=== PATIENT | female | born 1955 | race Caucasian/White ===

== ENCOUNTER 2017-09-28 15:56 | Observation (INO) ==
--- NOTE | 2017-09-28 16:15 | Emergency Department Note ---
START Narrative - START START: I examined this patient and my medical decision-making was reviewed with the VENEER GRADER/PA/Advanced Practice Nurse/Resident Physician. I agree with the documented findings, disposition and treatment plan as described except to the extent set forth below. I did see the patient immediately upon arrival and also spoke with the paramedics. The patient was sent from the urgent care and I did review the pre -arrival EKG as well as EKG from the paramedics. The patient does have chest pain which is sharp and constant started at 11:00 today without radiation. Does have associated diaphoresis and dyspnea and it is worse with exertion. The patient does have a history of aortic aneurysm and this study will be repeated - a CTA of the chest and abd will b done. Additionally the patient will receive nitroglycerin drip , fentanyl and Zofran, as well as other labs and chest x-ray will be done emergently. Results are pending. This point the patient is stable and she is allergic to beta blockers so will not be giving esmolol. Initial systolic blood pressure here 231 1614 I did review the patient's EKG showing a atrial paced rhythm without acute ischemic changes with a rate of 61. CO interval 200. 1652
[2017-09-28] MEDS ORDERED: *HR* FentaNYL (PF) 100 MCG/2 ML VIAL IVP ONE (16:16)
--- NOTE | 2017-09-28 16:27 | Emergency Department Note ---
Disposition Clinical Impression: Unstable angina pectoris, Hypertensive urgency Disposition: Admitted As Inpatient Condition: Fair Chest Pain HPI - General Chief Complaint: ED Chest Pain Stated Complaint: chest pain Time Seen by Provider: 09/28/17 16:00 Source: patient, EMS Limitations: no limitations Vital Signs Reviewed: Yes (BP 231/88) Nursing Notes Reviewed: Yes - History of Present Illness HPI Narrative: 61-year-old female with past medical history of hypertension, ventricular aneurysm, CAD, previous history of MIs, and atrial pacemaker, presents to the ED with acute onset of sharp left-sided chest pain that began around 11 AM this morning about 10-15 minutes after vomiting. She reports that the patient has been constant since that time, and that her pain is very similar to her previous AL. Associated symptoms include lightheadedness, dyspnea, diaphoresis , nausea, and vomiting. She states that her symptoms get worse with exertion. She denies any radiation of pain. She states that her blood pressure was high and her pulse was fast when the symptoms began. She reports that she has had nausea and vomiting for the past 3-4 days. Denies fever, chills, syncope, cough , change in bowels, dysuria, or leg swelling. Severity scale (1-10): 6 - Related Data Home Medications Medication Instructions Recorded Confirmed ALPRAZolam [Xanax 1 MG Tablet] 1 mg PO QID PRN 05/14/16 09/28/17 Gabapentin [Neurontin] 600 mg PO TID 05/14/16 09/28/17 Ibuprofen [Motrin] 800 mg PO Q8HR PRN 05/14/16 09/28/17 Lisinopril [Zestril] 40 mg PO DAILY 05/14/16 09/28/17 Ranitidine HCl [Zantac] 300 mg PO DAILY 05/14/16 09/28/17 amLODIPine [Norvasc] 10 mg PO DAILY 05/14/16 09/28/17 Oxycodone HCl 15 mg PO TID 05/21/16 09/28/17 Atorvastatin Calcium [Lipitor] 80 mg PO HS 09/28/17 09/28/17 Escitalopram [Lexapro] 10 mg PO DAILY 09/28/17 09/28/17 Furosemide [Lasix] 20 mg PO DAILY 09/28/17 09/28/17 Hydralazine HCl 100 mg PO TID 09/28/17 09/28/17 Metoprolol XL (24 HR) Succ [Toprol 25 mg PO DAILY 09/28/17 09/28/17 XL] Ondansetron HCl [Zofran] 4 mg PO TID PRN 09/28/17 09/28/17 Allergies Allergy/AdvReac Type Severity Reaction Status Date / Time hydrochlorothiazide AdvReac Rash Verified 09/28/17 14:45 metoprolol [From Toprol XL] AdvReac Rash Verified 09/28/17 14:45 All systems ED: reviewed and negative except as stated. Review of Systems: As Per HPI Chest Pain PMH - Past Medical History Medical history: Reports: aortic aneurysm, arthritis, cardiomyopathy, CHF, coronary artery disease, GERD, hyperlipidemia, hypertension, osteoporosis, peripheral artery disease Surgical history: Reports: hysterectomy, pacemaker/AICD, other Psychiatric history: Reports: anxiety ANTIQUE CLOCK REPAIRER history: Reports: no ANTIQUE CLOCK REPAIRER history - Social History Smoking Status: Former smoker Alcohol use: Reports: none Drug use: Reports: none Physical Exam - General Limitations: no limitations General appearance: alert, in no apparent distress - Head Head exam: atraumatic, normocephalic - Eye Eye exam: Present: normal appearance, EOMI - ENT ENT exam: mucous membranes moist - Chest Chest inspection: Present: normal inspection, symmetric chest wall rise, rash ( psoraisis) - Respiratory Respiratory exam: Present: normal lung sounds bilaterally. Absent: respiratory distress, accessory muscle use - Cardiovascular Cardiovascular exam: Present: regular rate, normal rhythm, +S1, +S2 - Abdominal Exam Abdominal exam: Present: soft, Non-Tender, normal bowel sounds - Extremities Exam Extremities exam: Present: normal inspection, normal capillary refill. Absent: pedal edema - Expanded Upper Extremity Exam Vascular exam: Normal: capillary refill, radial pulse - Expanded Lower Extremity Exam Neurovascular/Tendon exam: Present: normal capillary refill. Absent: pulse deficit, sensory deficit, extremity cold to touch - Neurological Exam Neurological exam: Present: alert, oriented X3 - Skin Skin exam: Present: warm, dry, intact Course Vital Signs Temperature 98.7 F 09/28/17 16:03 Pulse Rate 62 09/28/17 16:03 Respiratory Rate 16 09/28/17 16:03 Blood Pressure 231/88 09/28/17 16:03 O2 Sat by Pulse Oximetry 96 09/28/17 16:03 Temperature 97.4 F L 09/28/17 21:48 Pulse Rate 59 09/28/17 21:48 Respiratory Rate 16 09/28/17 21:48 Blood Pressure 131/60 09/28/17 21:48 O2 Sat by Pulse Oximetry 96 09/28/17 21:48 Oxygen Delivery Oxygen Delivery Room Air Chest Pain - MDM Narrative Medical decision making narrative: nitial evaluation upon arrival with EMS. ECG from EMS reviewed showing ST depression in V4-6. We will check basic labs and troponin. With her history of ventricular aneurysm will also order a CTA of the chest and abdomen to evaluate for aortic dissection. Blood pressure upon arrival is 231/88 and she has suspicion of end organ damage with ST depression. We will plan to decrease blood pressure slowly. We will give nitroglycerin and fentany. CTA shows no evidence of aortic aneurysm or dissection. Fentanyl helped the patient's pain, however she became nauseous, but Zofran helped her symptoms. Her blood pressure upon reevaluation 169/82. Initial troponin is negative. CBC and chemistry panel unremarkable. The patient's HEART score is 7. The patient will be admitted to trend troponins and further monitoring. Repeat ECG shows improvement in the ST depression in V4-6. - Differential Diagnosis Likely: stable angina, unstable angina pectoris, st elevation myocardial infraction - Lab Data Result diagrams: 09/28/17 16:19 09/28/17 16:19 Lab Results 09/28/17 09/28/17 09/28/17 Range/Units 16:19 16:19 16:19 WBC 8.5 (4.3-11.1) K/mcL RBC 4.76 (3.82-4.97) M/mcL Hgb 14.4 (11.5-15.4) g/dL Hct 42.5 (35.3-44.9) % MCV 89.3 (83.0-100.0) fL MCH 30.3 (28.0-33.3) pg MCHC 33.9 (31.6-35.5) g/dL RDW 12.1 (11.5-14.5) % Plt Count 254 (140-400) K/mcL MPV 9.1 L (9.4-12.4) fL Immature Gran % 0.6 (0-4) % Seg Neutrophils % 66.1 % Lymphocytes % 24.9 % Monocytes % 6.7 % Eosinophils % 1.2 % Basophils % 0.5 % Neutrophils # 5.6 (1.6-8.9) K/mcL Lymphocytes # 2.1 (0.6-4.6) K/mcL Monocytes # 0.6 (0.0-1.3) K/mcL Eosinophils # 0.1 (0.0-0.6) K/mcL Basophils # 0.0 (0.0-0.2) K/mcL Nucleated RBCs/100 WBC 0.2 H (0) /100 WBC Sodium 135 L (136-145) mEq/L Potassium 3.8 (3.5-5.1) mEq/L Chloride 102 (98-107) mEq/L Carbon Dioxide 25 (23-29) mEq/L BUN 15 (8-23) mg/dL Creatinine 0.74 (0.60-1.20) mg/dL Est GFR ( Amer) > 60 (> 60) Est GFR (Non-Af Amer) > 60 (> 60) BUN/Creatinine Ratio 20 (6-26) Glucose 132 H (70-105) mg/dL Calculated Osmolality 283 (280-300) Calcium 9.3 (8.6-10.3) mg/dL Troponin I < 0.03 (< 0.04) ng/mL Heart Score - Score History: Highly Suspicious EKG: Significant ST-Depression Age: 45-65 Risk Factors: Equal/Greater than 3 risk factor or history of atherosclerotic disease Troponin: Less than normal limit HEART Score Total: 7
[2017-09-28 16:36] LABS: Basophils % 0.5 %; Eosinophils # 0.1 K/mcL (0.0-0.6); Eosinophils % 1.2 %; Hematocrit 42.5 % (35.3-44.9); Hemoglobin 14.4 g/dL (11.5-15.4); Immature Granulocytes % 0.6 % (0-4); Lymphocytes # 2.1 K/mcL (0.6-4.6); Lymphocytes % 24.9 %; Mean Corpuscular HGB Conc 33.9 g/dL (31.6-35.5); Mean Corpuscular Hemoglobin 30.3 pg (28.0-33.3); Mean Corpuscular Volume 89.3 fL (83.0-100.0); Mean Platelet Volume 9.1 fL (9.4-12.4); Monocytes # 0.6 K/mcL (0.0-1.3); Monocytes % 6.7 %; Neutrophils # 5.6 K/mcL (1.6-8.9); Nucleated Red Blood Cells 0.2 /100 WBC (0); Platelet Count 254 K/mcL (140-400); Red Blood Count 4.76 M/mcL (3.82-4.97); Red Cell Distribution Width 12.1 % (11.5-14.5); Segmented Neutrophils % 66.1 %
[2017-09-28 16:45] LABS: Calcium 9.3 mg/dL (8.6-10.3); Carbon Dioxide 25 mEq/L (23-29); Chloride 102 mEq/L (98-107); Potassium 3.8 mEq/L (3.5-5.1); Sodium 135 mEq/L (136-145)
[2017-09-28 16:51] LABS: BUN/Creatinine Ratio 20 (6-26); Blood Urea Nitrogen 15 mg/dL (8-23); Glucose 132 mg/dL (70-105); Osmolality,Calculated 283 (280-300); eGFR For African Americans > 60 (> 60); eGFR For Non-African Americans > 60 (> 60)
[2017-09-28] MEDS: Nitroglycerin 25 MG/250 ML INFUS..BTL IVC SCH (17:24)
[2017-09-28] MEDS ORDERED: Ondansetron 4 MG/2 ML VIAL IVP ONE (17:36)
[2017-09-28] MEDS ORDERED: Ondansetron 4 MG/2 ML VIAL ONE (17:38)
[2017-09-29] MEDS ORDERED: Ibuprofen 800 MG TABLET PO PRN (00:37)
--- NOTE | 2017-09-29 00:37 | Internal Med History&Physical ---
<Magaly Rush - Last Filed: 09/29/17 06:55> Date of Encounter: 09/29/17 Time of Encounter: 23:50 Assessment and Plan (1) Chest pain, rule out acute myocardial infarction Current visit: Yes Status: Acute History of CAD and previous [place]. Initial EKG shows ST depressions in V4-V6. Initial troponin negative. Will trend with serial troponins and continue cardiac monitoring. Echo in AM. (2) Hypertensive urgency Current visit: Yes Status: Acute Presenting BP 231/88. Nitroglycerin gtt was started in ED to help decrease her BP, repeat of her blood pressure in ED was 131/60. Titrate nitro down, then continue home meds. Pt not on BB due to reported adverse reaction of rash. (3) Nausea & vomiting Current visit: Yes Status: Acute Reports 7 day h/o of nausea, vomiting multiple times daily, and inability to tolerate PO foods. Qualifiers: Vomiting type: cyclical vomiting Vomiting Intractability: unspecified Qualified Code(s): G43.A0 - Cyclical vomiting, not intractable (4) CAD (coronary artery disease) Current visit: Yes Status: Acute LHC performed May 2016 showed mild CAD, no stent or balloon placed, EF estimated to be 50%, and cardiology recommendations were to optimize medical treatment and reduce risk factors. Continue lipitor. Qualifiers: Coronary Disease-Associated Artery/Lesion type: [place] artery [place] vs. transplanted heart: [place] heart Associated angina: angina presence unspecified Qualified Code(s): I25.10 - Atherosclerotic heart disease of [place] coronary artery without angina pectoris (5) Presence of permanent cardiac pacemaker Current visit: Yes Status: Chronic First pacemaker placed in 2006, required replacement of generator in May 2016. Generator replaced at [place] by Dr. Shun Jacinto. Per record review, pt has pacemaker because of sick sinus syndrome. (6) Nonischemic cardiomyopathy Current visit: Yes Status: Chronic Continue DIONTE inhibitor. Pt not on BB due to reported adverse reaction of rash. Last echo shows EF 40-45%. (7) CHF with cardiomyopathy Current visit: Yes Status: Chronic Patient doesn't appear volume-overloaded at time of my exam, there were no crackles, S3 not heard on auscultation, and no peripheral edema. Pt's last echo performed May 2016, showed diastolic dysfunction and LVEF of 40-45%. Will order repeat echo in morning and continue Lasix. On telemetry for continuous cardiac monitoring. (8) DVT prophylaxis Current visit: Yes Status: Acute 5,000 units SubQ Heparin Q12H Internal Medicine - H&P: HPI Chief complaint: chest pain History of present illness: Ms. Monge is a 62 year old female who presents to ED with c/o chest pain, described as being sharp then became a dull pressure. Pt also presented for concern of elevated blood pressure, states her BP was 276/177 this morning with pulse of 129. Pt states that she woke up this morning and took her BP meds, but is unable to tell me which meds, and an hour later she became dizzy, lightheaded , short of breath, diaphoretic, and had facial flushing. At onset of chest pain and associated symptoms she was sitting down watching TV, denies having done any strenuous activities before sitting down. Chest pain was intermittent and lasted for an hour, when it hadn't gone away after an hour she became concerned and decided to get medical attention. Pt mentions that she has been nauseous and had non-bloody vomiting 3 to 4 times per day for the last week with alternating fevers and chills and cramping abdominal pain. She visited her PCP who provided zofran, but it didn't help. Pt states she has been unable to keep any food down and that it doesn't matter what type of food she eats, however she says these GI symptoms have gotten better compared to when they started. In the ED, pt's blood pressure was 231/88 with a pulse of 62. EKG from EMS crew showed ST depressions in V4-V6. Basic labs and troponin were drawn. There was concern for end organ damage given her presenting BP and ST depressions. Her BP was lowered slowly using nitroglycerin drip. CTA of chest and abdomen performed because pt reportedly has h/o aneurysm, results showed no evidence for aortic dissection. Initial metabolic panel and CBC were unremarkable, 1st troponin was negative. She was admitted to hospitalist service for further monitoring and to trend troponins. Past Med Surg Social Fam HX - Past Medical History Medical history: aortic aneurysm, arthritis, cardiomyopathy, CHF, coronary artery disease, GERD, hyperlipidemia, hypertension, osteoporosis, peripheral artery disease Psychiatric history: anxiety - Past Surgical History Surgical History: hysterectomy, pacemaker/AICD, other - Social History Smoking Status: Former smoker Smokeless Tobacco Status: No Alcohol use: none Drug use: none - Family History Mother Hx Family Cardiac Disorders: Yes Internal Medicine - H&P: Meds ALPRAZolam [Xanax 1 MG Tablet] 1 mg PO QID PRN 05/14/16 [History] Gabapentin [Neurontin] 600 mg PO TID 05/14/16 [History] Ibuprofen [Motrin] 800 mg PO Q8HR PRN 05/14/16 [History] Lisinopril [Zestril] 40 mg PO DAILY 05/14/16 [History] Ranitidine HCl [Zantac] 300 mg PO DAILY 05/14/16 [History] amLODIPine [Norvasc] 10 mg PO DAILY 05/14/16 [History] Oxycodone HCl 15 mg PO TID 05/21/16 [History] Atorvastatin Calcium [Lipitor] 80 mg PO HS 09/28/17 [History] Escitalopram [Lexapro] 10 mg PO DAILY 09/28/17 [History] Furosemide [Lasix] 20 mg PO DAILY 09/28/17 [History] Hydralazine HCl 100 mg PO TID 09/28/17 [History] Ondansetron HCl [Zofran] 4 mg PO TID PRN 09/28/17 [History] 3 Allergy/AdvReac Type Severity Reaction Status Date / Time hydrochlorothiazide AdvReac Rash Verified 09/28/17 14:45 metoprolol [From Toprol XL] AdvReac Rash Verified 09/28/17 14:45 All Systems PM: A 10-system review of systems was performed and is negative for pertinent findings except as documented above in the HPI. - Constitutional Vitals: Temp Pulse Resp BP Pulse Ox 97.4 F L 59 16 131/60 96 09/28/17 21:48 09/28/17 21:48 09/28/17 21:48 09/28/17 21:48 09/28/17 21:48 General appearance: Present: A&O X 3, pleasant, no acute distress, answers questions appropriately - Head Head exam: Present: atraumatic, normocephalic - Eye Eye exam: Present: EOMI, normal appearance - Neck Neck exam general surgery: Present: supple, trachea midline - Respiratory Respiratory exam: Present: CTAB. Absent: rales, respiratory distress, wheezes - Cardiovascular Cardiovascular exam: Present: +S1, +S2 Additional comments: Regular rate, paced rhythm - GI/Abdominal GI/Abdominal exam: Present: normal bowel sounds, soft. Absent: tenderness - Extremities Exam Extremities exam: Present: warm. Absent: pedal edema Additional comments: 2+ DP pulses - Neurological Exam Neurological exam: Present: alert, oriented X3, no focal deficits - Skin Skin exam: Present: normal color. Absent: diaphoretic Internal Med - H&P Results - Labs CBC & Chem 7: 09/29/17 00:59 09/29/17 00:59 <Hieu Canales - Last Filed: 09/29/17 07:12> Date of Encounter: 09/29/17 Internal Medicine - H&P: HPI History of present illness: Ms. Monge is a 62 year old female All Systems PM: A 10-system review of systems was performed and is negative for pertinent findings except as documented above in the HPI. - Constitutional Vitals: Temp Pulse Resp BP Pulse Ox 97.6 F 59 17 129/57 97 09/29/17 04:43 09/29/17 04:43 09/29/17 04:43 09/29/17 04:43 09/29/17 04:43 Internal Med - H&P Results - Labs CBC & Chem 7: 09/29/17 00:59 09/29/17 00:59 Labs: Short CBC 09/29/17 Range/Units 00:59 WBC 11.2 H (4.3-11.1) K/mcL Hgb 13.6 (11.5-15.4) g/dL Hct 39.9 (35.3-44.9) % Plt Count 277 (140-400) K/mcL Neutrophils # 7.0 (1.6-8.9) K/mcL BMP 09/29/17 00:59 Sodium 137 Potassium 4.1 Chloride 104 Carbon Dioxide 25 BUN 20 Creatinine 0.85 Glucose 120 H Calcium 9.2 Cardiac Enzymes 09/29/17 09/29/17 Range/Units 00:59 06:19 Troponin I < 0.03 < 0.03 (< 0.04) ng/mL - Attending Attestation I have seen and examined pt independently. I have discussed with resident physician Dr Rush regarding the management plan. Agree with the documentation.
[2017-09-29] MEDS ORDERED: Naloxone 0.4 MG/ML INJ IVP PRN (00:43)
[2017-09-29 01:06] LABS: Basophils # 0.1 K/mcL (0.0-0.2); Basophils % 0.4 %; Eosinophils # 0.2 K/mcL (0.0-0.6); Eosinophils % 1.5 %; Hematocrit 39.9 % (35.3-44.9); Hemoglobin 13.6 g/dL (11.5-15.4); Immature Granulocytes % 0.4 % (0-4); Lymphocytes % 26.5 %; Mean Corpuscular HGB Conc 34.1 g/dL (31.6-35.5); Mean Corpuscular Hemoglobin 30.8 pg (28.0-33.3); Mean Corpuscular Volume 90.3 fL (83.0-100.0); Mean Platelet Volume 9.2 fL (9.4-12.4); Monocytes % 8.7 %; Platelet Count 277 K/mcL (140-400); Red Blood Count 4.42 M/mcL (3.82-4.97); Red Cell Distribution Width 12.3 % (11.5-14.5); Segmented Neutrophils % 62.5 %
[2017-09-29 01:22] LABS: BUN/Creatinine Ratio 24 (6-26); Blood Urea Nitrogen 20 mg/dL (8-23); Calcium 9.2 mg/dL (8.6-10.3); Carbon Dioxide 25 mEq/L (23-29); Chloride 104 mEq/L (98-107); Glucose 120 mg/dL (70-105); Osmolality,Calculated 288 (280-300); Potassium 4.1 mEq/L (3.5-5.1); Sodium 137 mEq/L (136-145); eGFR For African Americans > 60 (> 60); eGFR For Non-African Americans > 60 (> 60)
[2017-09-29] MEDS ORDERED: Ondansetron 4 MG/2 ML VIAL ONE (01:50)
[2017-09-29] MEDS: ALPRAZolam 1 MG TABLET PO PRN ×2 (01:51→22:40)
[2017-09-29] MEDS: Ondansetron 4 MG/2 ML VIAL IVP PRN (01:55)
[2017-09-29] MEDS: *HR* Heparin 5,000 UNIT/ML VIAL SQ SCH ×2 (06:27→19:29)
[2017-09-29] MEDS: Furosemide 20 MG TABLET PO SCH (08:31)
[2017-09-29] MEDS: *HR* OxyCODONE Immed Rel 15 MG TABLET PO SCH ×3 (08:31→22:36)
[2017-09-29] MEDS: hydrALAZINE 25 MG TABLET PO SCH ×3 (08:31→22:35)
[2017-09-29] MEDS: amLODIPine 5 MG TABLET PO SCH (08:32)
[2017-09-29] MEDS: Gabapentin 300 MG CAPSULE PO SCH ×3 (08:32→22:35)
[2017-09-29] MEDS: Lisinopril 20 MG TABLET PO SCH (08:32)
[2017-09-29] MEDS: Famotidine 20 MG TABLET PO SCH (08:32)
[2017-09-29] MEDS ORDERED: Metoprolol XL (24 HR) Succ 25 MG TAB.ER.24H PO SCH (09:00)
[2017-09-29] MEDS ORDERED: 0.9 % Sodium Chloride 1,000 ML ONE (11:16)
[2017-09-29] MEDS: Nitroglycerin 25 MG/250 ML INFUS..BTL IVC SCH (15:23)
--- NOTE | 2017-09-29 15:33 | Internal Med Progress Note ---
Date of Encounter: 09/29/17 Time of Encounter: 15:31 - Assessment and plan (1) Chest pain, rule out acute myocardial infarction Current Visit: Yes Status: Acute Assessment and plan: Has history of CAD and previous [place] Described as squeezing in substernal region, lasted 30 min, no alleviating factor, without radiation Troponin negative x3 BP now within normal limits Last [facility] was in 2016. Previous echocardiogram showed reduced LVEF. Today echo showed LVEF 65% with normal LV size and function, moderate diastolic dysfunction. EKG showed ST depressions in V4-V6 - Continue management of hypertension - Consult Cardiology service, recommendations appreciated if further workup is necessary (2) Hypertensive urgency Current Visit: Yes Status: Acute Assessment and plan: Off nitro drip since BP now within normal limits - Continue Norvasc, Hydralazine TID PO, Lisinopril - She has listed allergie to BB - will add prn hydralazine IV (3) CAD (coronary artery disease) Current Visit: Yes Status: Acute Qualifiers: Coronary Disease-Associated Artery/Lesion type: [place] artery [place] vs. transplanted heart: [place] heart Associated angina: angina presence unspecified Qualified Code(s): I25.10 - Atherosclerotic heart disease of [place] coronary artery without angina pectoris (4) CHF (congestive heart failure) Current Visit: Yes Status: Acute Qualifiers: Heart failure type: diastolic Heart failure chronicity: chronic Qualified Code(s): I50.32 - Chronic diastolic (congestive) heart failure (5) Cardiomyopathy Current Visit: Yes Status: Acute Qualifiers: Cardiomyopathy type: unspecified Qualified Code(s): I42.9 - Cardiomyopathy , unspecified (6) DVT prophylaxis Current Visit: Yes Status: Acute (7) Nausea & vomiting Current Visit: Yes Status: Acute Qualifiers: Vomiting type: cyclical vomiting Vomiting Intractability: unspecified Qualified Code(s): G43.A0 - Cyclical vomiting, not intractable (8) Nonischemic cardiomyopathy Current Visit: Yes Status: Chronic (9) Presence of permanent cardiac pacemaker Current Visit: Yes Status: Chronic - Subjective Interval history: Patient here for chest pain and hypertensive urgency. She was placed on nitroglycerin drip since admission and BP improved but did get SBP 70s at some point early today. She required 250 ml IV fluid and manual BP reading now SBP in 110. She is currently chest pain free, last episode was 4 am today. She denies SOB, palpiations, n/v, diaphoresis, numbness/tingling. - Constitutional Vitals: Temp Pulse Resp BP Pulse Ox 98.2 F 60 16 106/64 96 09/29/17 12:21 09/29/17 12:21 09/29/17 12:21 09/29/17 12:21 09/29/17 12:21 General appearance: Present: A&O X 3, pleasant, no acute distress, answers questions appropriately - Head Head exam: Present: atraumatic, normocephalic - Eye Eye exam: Present: PERRL, conjuntiva pink, sclera anicteric Pupils: Present: PERRL - Neck Neck exam general surgery: Present: supple, trachea midline. Absent: lymphadenopathy - Respiratory Respiratory exam: Present: decreased breath sounds, CTAB. Absent: accessory muscle use, rales, rhonchi, wheezes - Cardiovascular Cardiovascular exam: Present: RRR, +S1, +S2. Absent: diastolic murmur, gallop, rubs, systolic murmur - GI/Abdominal GI/Abdominal exam: Present: normal bowel sounds, soft, no peritoneal signs. Absent: distended, tenderness - Extremities Exam Extremities exam: Present: warm, radial pulses palpable and symmetrical. Absent : calf tenderness, cyanotic, pedal edema - Neurological Exam Neurological exam: Present: CN II-XII intact, oriented X3, no focal deficits. Absent: pronater drift, facial droop, speech deficit - Skin Skin exam: Present: dry, intact Internal Medicine: Result - Labs CBC & Chem 7: 09/29/17 00:59 09/29/17 00:59 Labs: Short CBC 09/29/17 Range/Units 00:59 WBC 11.2 H (4.3-11.1) K/mcL Hgb 13.6 (11.5-15.4) g/dL Hct 39.9 (35.3-44.9) % Plt Count 277 (140-400) K/mcL Neutrophils # 7.0 (1.6-8.9) K/mcL BMP 09/29/17 00:59 Sodium 137 Potassium 4.1 Chloride 104 Carbon Dioxide 25 BUN 20 Creatinine 0.85 Glucose 120 H Calcium 9.2 Cardiac Enzymes 02/28/18 02/28/18 02/28/18 Range/Units 00:59 06:19 12:48 Troponin I < 0.03 < 0.03 < 0.03 (< 0.04) ng/mL - Impressions Impressions Echocardiogram 09/29/17 01:51 Impressions: LVEF 65%. Normal LV chamber size and function. Mild concentric left ventricular hypertrophy. Moderate left ventricular diastolic dysfunction. Normal right ventricular structure and function. Aortic valve not well visualized. Mild aortic regurgitation. Mild aortic stenosis. Mean gradient 16 mmHg. No evidence of pulmonary hypertension. LVEF improved compared to report from 05/2016. Left Ventricular Wall Motion: Rest Echo Findings All wall segments showed normal motion. Findings: Study Quality * Technically adequate exam. ECG Findings * Normal sinus rhythm. Left Ventricle * LVEF 65%. * Normal LV chamber size and function. * Mild concentric left ventricular hypertrophy. * Moderate left ventricular diastolic dysfunction. Right Ventricle * Normal right ventricular structure and function. Left Atrium * Moderately dilated left atrium. Right Atrium * Mildly dilated right atrium. Interatrial Septum * Interatrial septum not well evaluated. Aortic Valve * Aortic valve not well visualized. * Mild aortic regurgitation. * Mild aortic stenosis. Mean gradient 16 mmHg. Mitral Valve * Normal mitral valve structure and function. * No mitral stenosis. * Trace mitral regurgitation. Tricuspid Valve * Normal tricuspid valve structure and function. * Trace tricuspid regurgitation. * No evidence of pulmonary hypertension. Pulmonic Valve * Pulmonic valve not well visualized. * No pulmonic regurgitation. Aorta * Normally sized aortic root. Pericardium * The pericardium appears normal. IVC * Normal IVC dimensions and inspiratory collapse. Pulmonary Artery * Normal visualized portions of the main pulmonary artery. Consult Discharge Plan - Plan Referrals: Sapna Tripathi MD [Primary Care Provider] -
[2017-09-30] MEDS: Ondansetron 4 MG/2 ML VIAL IVP PRN ×3 (00:43→21:15)
[2017-09-30] MEDS: *HR* Heparin 5,000 UNIT/ML VIAL SQ SCH ×2 (05:59→17:27)
[2017-09-30] MEDS: Furosemide 20 MG TABLET PO SCH (08:04)
[2017-09-30] MEDS: *HR* OxyCODONE Immed Rel 15 MG TABLET PO SCH ×3 (08:04→21:15)
[2017-09-30] MEDS: Lisinopril 20 MG TABLET PO SCH (08:04)
[2017-09-30] MEDS: Gabapentin 300 MG CAPSULE PO SCH ×2 (08:04→21:16)
[2017-09-30] MEDS: hydrALAZINE 25 MG TABLET PO SCH ×3 (08:04→21:16)
[2017-09-30] MEDS: Famotidine 20 MG TABLET PO SCH (08:04)
[2017-09-30] MEDS: amLODIPine 5 MG TABLET PO SCH (08:04)
[2017-09-30 08:05] LABS: Basophils # 0.1 K/mcL (0.0-0.2); Basophils % 0.5 %; Eosinophils # 0.1 K/mcL (0.0-0.6); Eosinophils % 0.4 %; Hematocrit 36.3 % (35.3-44.9); Hemoglobin 12.2 g/dL (11.5-15.4); Immature Granulocytes % 0.6 % (0-4); Lymphocytes # 2.5 K/mcL (0.6-4.6); Lymphocytes % 20.2 %; Mean Corpuscular HGB Conc 33.6 g/dL (31.6-35.5); Mean Corpuscular Volume 92.4 fL (83.0-100.0); Mean Platelet Volume 10.1 fL (9.4-12.4); Monocytes # 1.1 K/mcL (0.0-1.3); Monocytes % 8.4 %; Neutrophils # 8.8 K/mcL (1.6-8.9); Platelet Count 285 K/mcL (140-400); Red Blood Count 3.93 M/mcL (3.82-4.97); Red Cell Distribution Width 13.4 % (11.5-14.5); Segmented Neutrophils % 69.9 %
[2017-09-30] MEDS: Triamcinolone Acet 0.1% CRM 15 GM TUBE TP SCH ×2 (08:05→21:16)
[2017-09-30] MEDS: ALPRAZolam 1 MG TABLET PO PRN ×2 (08:08→21:15)
[2017-09-30 08:48] LABS: Calcium 8.9 mg/dL (8.6-10.3); Potassium 4.4 mEq/L (3.5-5.1)
--- NOTE | 2017-09-30 09:58 | Cardiology Consult Note ---
<Justin Estrada - Last Filed: 09/30/17 09:54> Date of Encounter: 09/30/17 Time of Encounter: 09:54 Assessment and Plan (1) Chest pain with low risk of acute coronary syndrome Current Visit: No Status: Acute CP rule out. Atypical chest pain. Likely muscle skeletal. Troponin negative. TTE this admission shows improved EF. LVEF 65%. Normal LV chamber size and function. Mild concentric left ventricular hypertrophy. Moderate left ventricular diastolic dysfunction. Normal right ventricular structure and function. Aortic valve not well visualized.Mild aortic regurgitation. Mild aortic stenosis. Mean gradient 16 mmHg. No evidence of pulmonary hypertension. LVEF improved compared to report from 05/2016. CTA negative for PE or aortic dissection. No indication for further cardiac testing. R/o non-cardiac cause. (2) Presence of permanent cardiac pacemaker Current Visit: Yes Status: Chronic H/o PPM. Battery replaced 2015. Device checks up-to date. Telemetry shows NSR with occasional V-pacing. Discussion w patient/family: The assessment and plan as outlined above was discussed with the patient and/or family members who expressed understanding and agreement. All questions were answered. Thank you for involving us in the care of your patient. Please call with any questions. History of Present Illness Consult date: 09/30/17 Requesting physician: Veto Curry Consult reason: Chest pain Chief complaint: atypical chest pain History of present illness: Ms. 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 She states she was sitting on her couch watching TV when she developed a sharp pinching sensation in her left breast and then a constant pressure. She was also scratching her head and developed pain radiating from the top of her head to her left shoulder. She denies alleviating factors. The pain increases with cough and deep breaths. Cardiology consulted for recommendations. Previous cardiac testing: [facility] 05/17/16- EF 50%. There was a 30% stenosis in the Mid LAD. The lesion has a BELINDA flow of 3. 20% stenosis in the Proximal Circumflex. The lesion has a BELINDA 20% stenosis in the Right PDA. The lesion has a BELINDA flow of 3. Past Med Surg Social Fam HX - Past Medical History Medical history: aortic aneurysm, arthritis, cardiomyopathy, CHF, coronary artery disease, GERD, hyperlipidemia, hypertension, osteoporosis, peripheral artery disease Psychiatric history: anxiety - Past Surgical History Surgical History: hysterectomy, pacemaker/AICD, other - Social History Smoking Status: Former smoker Smokeless Tobacco Status: No Alcohol use: none Drug use: none - Family History Mother Hx Family Cardiac Disorders: Yes Medications and Allergies ALPRAZolam [Xanax 1 MG Tablet] 1 mg PO QID PRN 05/14/16 [History] Gabapentin [Neurontin] 600 mg PO TID 05/14/16 [History] Ibuprofen [Motrin] 800 mg PO Q8HR PRN 05/14/16 [History] Lisinopril [Zestril] 40 mg PO DAILY 05/14/16 [History] Ranitidine HCl [Zantac] 300 mg PO DAILY 05/14/16 [History] amLODIPine [Norvasc] 10 mg PO 1400 05/14/16 [History] Oxycodone HCl 15 mg PO TID 05/21/16 [History] Atorvastatin Calcium [Lipitor] 80 mg PO HS 09/28/17 [History] Escitalopram [Lexapro] 10 mg PO DAILY 09/28/17 [History] Furosemide [Lasix] 20 mg PO DAILY 09/28/17 [History] Hydralazine HCl 100 mg PO TID 09/28/17 [History] Ondansetron HCl [Zofran] 4 mg PO TID PRN 09/28/17 [History] 3 Allergy/AdvReac Type Severity Reaction Status Date / Time hydrochlorothiazide AdvReac Rash Verified 09/28/17 14:45 metoprolol [From Toprol XL] AdvReac Rash Verified 09/28/17 14:45 All Systems Review: The remainder of the systems were reviewed and are negative Physical Examination Vital Signs, Last 4 Hours Temp Pulse Resp BP Pulse Ox 09/30/17 06:34 97.9 F 60 16 108/62 94 Results 09/30/17 06:47 09/30/17 06:47 Lab Results 09/29/17 09/30/17 09/30/17 12:48 06:47 06:47 WBC 12.5 H Hgb 12.2 Hct 36.3 Plt Count 285 Sodium 131 L Potassium 4.4 Chloride 101 Carbon Dioxide 22 L BUN 32 H Creatinine 2.17 H Glucose 149 H Calcium 8.9 Troponin I < 0.03 Consult Discharge Plan - Plan Referrals: Sapna Tripathi MD [Primary Care Provider] - <Sukumar Ortez - Last Filed: 09/30/17 15:07> Date of Encounter: 09/30/17 - Attending Attestation 62 YOF with hx of taktsubo CM and EF 45% C non obstructive CAD Now EF 65% with atypical chest pain Outpatient stress test is reasonable No current cardiac testing Assessment and Plan Discussion w patient/family: The assessment and plan as outlined above was discussed with the patient and/or family members who expressed understanding and agreement. All questions were answered. Thank you for involving us in the care of your patient. Please call with any questions. History of Present Illness History of present illness: Ms. Monge is a 62 year old female All Systems Review: The remainder of the systems were reviewed and are negative Physical Examination Vital Signs, Last 4 Hours BP 09/30/17 11:22 107/46 Results 09/30/17 06:47 09/30/17 06:47 Lab Results 09/30/17 09/30/17 06:47 06:47 WBC 12.5 H Hgb 12.2 Hct 36.3 Plt Count 285 Sodium 131 L Potassium 4.4 Chloride 101 Carbon Dioxide 22 L BUN 32 H Creatinine 2.17 H Glucose 149 H Calcium 8.9
--- NOTE | 2017-09-30 11:29 | Internal Med Progress Note ---
Date of Encounter: 09/30/17 Time of Encounter: 17:21 - Assessment and plan (1) Acute renal failure Current Visit: Yes Status: Acute Assessment and plan: Likely resulted from hypertensive urgency or abrupt correction of chronic hypertension. - Hold lisinopril - Continue BP control cautiously - Recheck BMP in AM - If no improvement will consult Nephrology. Qualifiers: Acute renal failure type: unspecified Qualified Code(s): N17.9 - Acute kidney failure, unspecified (2) Chest pain, rule out acute myocardial infarction Current Visit: Yes Status: Acute Assessment and plan: Has history of CAD and previous MD Described as squeezing in substernal region, lasted 30 min, no alleviating factor, without radiation Troponin negative x3 BP now within normal limits Last [facility] was in 2016. Previous echocardiogram showed reduced LVEF. Today echo showed LVEF 65% with normal LV size and function, moderate diastolic dysfunction. EKG showed ST depressions in V4-V6 Stress test as OP suggested - Continue management of hypertension (3) Hypertensive urgency Current Visit: Yes Status: Acute Assessment and plan: Off nitro drip since BP now within normal limits - Continue Norvasc, Hydralazine TID PO, Lisinopril - She has listed allergie to BB - will add prn hydralazine IV (4) CAD (coronary artery disease) Current Visit: Yes Status: Acute Qualifiers: Coronary Disease-Associated Artery/Lesion type: [place] artery [place] vs. transplanted heart: [place] heart Associated angina: angina presence unspecified Qualified Code(s): I25.10 - Atherosclerotic heart disease of [place] coronary artery without angina pectoris (5) CHF (congestive heart failure) Current Visit: Yes Status: Acute Qualifiers: Heart failure type: diastolic Heart failure chronicity: chronic Qualified Code(s): I50.32 - Chronic diastolic (congestive) heart failure (6) Cardiomyopathy Current Visit: Yes Status: Acute Qualifiers: Cardiomyopathy type: unspecified Qualified Code(s): I42.9 - Cardiomyopathy , unspecified (7) Nonischemic cardiomyopathy Current Visit: Yes Status: Chronic (8) Presence of permanent cardiac pacemaker Current Visit: Yes Status: Chronic (9) DVT prophylaxis Current Visit: Yes Status: Acute - Subjective Interval history: No acute issues. BMP came back delayed showed worsening creatinine - Constitutional Vitals: Temp Pulse Resp BP Pulse Ox 98.4 F 60 16 107/46 94 09/30/17 11:01 09/30/17 11:01 09/30/17 06:34 09/30/17 11:22 09/30/17 11:01 General appearance: Present: A&O X 3, pleasant, no acute distress, answers questions appropriately - Head Head exam: Present: atraumatic, normocephalic - Eye Eye exam: Present: PERRL, conjuntiva pink, sclera anicteric Pupils: Present: PERRL - Neck Neck exam general surgery: Present: supple, trachea midline. Absent: lymphadenopathy - Respiratory Respiratory exam: Present: CTAB. Absent: accessory muscle use, rales, rhonchi, wheezes - Cardiovascular Cardiovascular exam: Present: RRR, +S1, +S2. Absent: diastolic murmur, gallop, rubs, systolic murmur - GI/Abdominal GI/Abdominal exam: Present: normal bowel sounds, soft, no peritoneal signs. Absent: distended, tenderness - Extremities Exam Extremities exam: Present: warm, radial pulses palpable and symmetrical. Absent : calf tenderness, cyanotic, pedal edema - Neurological Exam Neurological exam: Present: CN II-XII intact, oriented X3, no focal deficits. Absent: pronater drift, facial droop, speech deficit - Skin Skin exam: Present: dry, intact Internal Medicine: Result - Labs CBC & Chem 7: 09/30/17 06:47 09/30/17 06:47 Labs: Short CBC 09/30/17 Range/Units 06:47 WBC 12.5 H (4.3-11.1) K/mcL Hgb 12.2 (11.5-15.4) g/dL Hct 36.3 (35.3-44.9) % Plt Count 285 (140-400) K/mcL Neutrophils # 8.8 (1.6-8.9) K/mcL BMP 09/30/17 06:47 Sodium 131 L Potassium 4.4 Chloride 101 Carbon Dioxide 22 L BUN 32 H Creatinine 2.17 H Glucose 149 H Calcium 8.9 Cardiac Enzymes 09/29/17 Range/Units 12:48 Troponin I < 0.03 (< 0.04) ng/mL Consult Discharge Plan - Plan Referrals: Sapna Tripathi MD [Primary Care Provider] -
[2017-09-30] MEDS: Nitroglycerin 25 MG/250 ML INFUS..BTL IVC SCH (13:48)
[2017-09-30] MEDS ORDERED: NON-FORMULARY MEDICATION 1 EACH EACH TP SCH (21:00)
[2017-09-30] MEDS: TRETINOIN 0.025% TP SCH (21:15)
[2017-10-01 05:28] LABS: Basophils # 0.1 K/mcL (0.0-0.2); Basophils % 0.6 %; Eosinophils # 0.1 K/mcL (0.0-0.6); Eosinophils % 0.9 %; Hematocrit 37.4 % (35.3-44.9); Hemoglobin 12.4 g/dL (11.5-15.4); Immature Granulocytes % 0.8 % (0-4); Lymphocytes % 22.5 %; Mean Corpuscular HGB Conc 33.2 g/dL (31.6-35.5); Mean Corpuscular Hemoglobin 30.4 pg (28.0-33.3); Mean Corpuscular Volume 91.7 fL (83.0-100.0); Mean Platelet Volume 9.4 fL (9.4-12.4); Monocytes # 0.9 K/mcL (0.0-1.3); Monocytes % 9.7 %; Neutrophils # 5.9 K/mcL (1.6-8.9); Platelet Count 251 K/mcL (140-400); Red Blood Count 4.08 M/mcL (3.82-4.97); Red Cell Distribution Width 13.6 % (11.5-14.5); Segmented Neutrophils % 65.5 %
[2017-10-01 05:42] LABS: Calcium 8.7 mg/dL (8.6-10.3); Potassium 4.6 mEq/L (3.5-5.1)
[2017-10-01] MEDS: *HR* Heparin 5,000 UNIT/ML VIAL SQ SCH ×2 (06:24→16:36)
[2017-10-01] MEDS: Nitroglycerin 25 MG/250 ML INFUS..BTL IVC SCH (08:18)
[2017-10-01] MEDS: Gabapentin 300 MG CAPSULE PO SCH ×2 (08:25→22:33)
[2017-10-01] MEDS: *HR* OxyCODONE Immed Rel 15 MG TABLET PO SCH ×3 (08:26→22:33)
[2017-10-01] MEDS: hydrALAZINE 25 MG TABLET PO SCH ×3 (08:26→22:33)
[2017-10-01] MEDS: amLODIPine 5 MG TABLET PO SCH (08:26)
[2017-10-01] MEDS: Furosemide 20 MG TABLET PO SCH (08:26)
[2017-10-01] MEDS: Triamcinolone Acet 0.1% CRM 15 GM TUBE TP SCH ×2 (08:26→22:36)
[2017-10-01] MEDS: ALPRAZolam 1 MG TABLET PO PRN ×2 (08:28→22:40)
[2017-10-01] MEDS: 0.9 % Sodium Chloride 1,000 ML IVC SCH ×2 (09:30→20:26)
--- NOTE | 2017-10-01 10:22 | Electrocardiograph Report ---
[place] [id number] Test Date: 2017-09-28 Pat Name: Rylee Monge Department: 104 Room: [id number] Gender: F Cms Expert: ARIE : 1955 Requested By: Alirio Croft Order Number: [id number] Reading MD: Tony Burk DO Measurements Intervals [place] Rate: 62 P: 111 ID: [id number] QRS: 1 QRSD: 101 T: 54 QT: 480 QTc: 485 Interpretive Statements ELECTRONIC ATRIAL PACEMAKER INFERIOR MYOCARDIAL INFARCTION, PROBABLY OLD Electronically Signed On 10-01-2017 10:21:09 EST by Tony Burk DO
--- NOTE | 2017-10-01 10:53 | Nephrology Consult Note ---
Date of Encounter: 10/01/17 Time of Encounter: 09:35 Assessment and Plan (1) Acute renal failure Current Visit: Yes Status: Acute Nonoliguric acute kidney injury, with potential etiology including contrast- induced nephropathy, hemodynamic/prerenal from correction of her blood pressure , versus other. She underwent large contrast exposure with a CTA of the chest, abdomen/pelvis, as well as a left heart catheter. I suspect this is the primary etiology. I will recommend checking a renal ultrasound to rule out hydronephrosis, since the initial CT did not report on the ureters. We will check serologies, urine studies. Her blood pressures are more stable at this point but sometimes a rapid correction will induce a transient hypoperfused state. At this point she should have her lisinopril held as you have artery done. Continue to follow a renal protective and renal conservative strategy including avoidance of nephrotoxic agents, dosing of medication by GFR, strict I's and O' s and daily weights. Thank you for consulting the [place] [facility]. Qualifiers: Acute renal failure type: unspecified Qualified Code(s): N17.9 - Acute kidney failure, unspecified (2) Hyponatremia Current Visit: Yes Status: Acute Mild hyponatremia. She appears euvolemic on exam. Will check urine osmolality, urine studies, cortisol, serum uric acid. (3) Hypertensive urgency Current Visit: Yes Status: Acute See above (4) Ascending aortic aneurysm Current Visit: Yes Status: Chronic The CTA demonstrated that she was not undergoing dissection. History of Present Illness - Reason for Consult Consult date: 10/01/17 Acute Kidney Injury, accelerated hypertension Requesting physician: Veto Curry - Chief Complaint ERIK - History of Present Illness Rylee Monge is a very pleasant 62 y/o WF with a pmh of HTN, Dariers' disease (chronic rash), HLD, IFG and et al who presented with CP and hypertensive emergency. Nephrology was consulted for a rapidly rising SCr. She was found to have a trop elevation and underwent a LHD. She affirmed having N/V for about 4-5 days prior to admission, and she routinely takes about one Motrin per day. She presented with very elevated BPs that responded well to antihypertensive medications after admission. She denied having dysuria and feels that she urinates fully without burning, hx of renal stones, gout or any prior nephrology consultation. FHx: no relatives with a hx of ESRD. Past Med Surg Social Fam HX - Past Medical History Medical history: aortic aneurysm, arthritis, cardiomyopathy, CHF, coronary artery disease, GERD, hyperlipidemia, hypertension, osteoporosis, peripheral artery disease Psychiatric history: anxiety - Past Surgical History Surgical History: hysterectomy, pacemaker/AICD, other - Social History Smoking Status: Former smoker Smokeless Tobacco Status: No Alcohol use: none Drug use: none - Family History Mother Hx Family Cardiac Disorders: Yes Medications and Allergies ALPRAZolam [Xanax 1 MG Tablet] 1 mg PO QID PRN 05/14/16 [History] Gabapentin [Neurontin] 600 mg PO TID 05/14/16 [History] Ibuprofen [Motrin] 800 mg PO Q8HR PRN 05/14/16 [History] Lisinopril [Zestril] 40 mg PO DAILY 05/14/16 [History] Ranitidine HCl [Zantac] 300 mg PO DAILY 05/14/16 [History] amLODIPine [Norvasc] 10 mg PO 1400 05/14/16 [History] Oxycodone HCl 15 mg PO TID 05/21/16 [History] Atorvastatin Calcium [Lipitor] 80 mg PO HS 09/28/17 [History] Escitalopram [Lexapro] 10 mg PO DAILY 09/28/17 [History] Furosemide [Lasix] 20 mg PO DAILY 09/28/17 [History] Hydralazine HCl 100 mg PO TID 09/28/17 [History] Ondansetron HCl [Zofran] 4 mg PO TID PRN 09/28/17 [History] 3 Allergy/AdvReac Type Severity Reaction Status Date / Time hydrochlorothiazide AdvReac Rash Verified 09/28/17 14:45 metoprolol [From Toprol XL] AdvReac Rash Verified 09/28/17 14:45 Review of Systems All Systems: reviewed and no additional remarkable complaints except as stated Exam - Vital Signs Vital signs: Initial Vital Signs Temp Pulse Resp BP Pulse Ox 98.7 F 62 16 231/88 96 09/28/17 16:03 09/28/17 16:03 09/28/17 16:03 09/28/17 16:03 09/28/17 16:03 Vital Signs - Last 8 Hours Temp Pulse Resp BP Pulse Ox 10/01/17 07:17 98.1 F 64 18 144/56 95 10/01/17 04:31 98.9 F 85 19 Intake and Output 09/30/17 10/01/17 10/01/17 23:59 07:59 15:59 Intake Total 240 / 240 0 / 0 240 / 240 Balance 240 / 240 0 / 0 240 / 240 Intake: Oral 240 / 240 0 / 0 240 / 240 Other: Meal Dinner Breakfast Percent of Meal Consumed 5% 50% # Voids 4 Weight 88.6 kg Blood Glucose* 156 Patient Weight 10/01/17 23:59 Weight 88.6 kg - General Appearance General appearance: well-developed, well-nourished, appears started age EENT: ATNC, PERRL, mucous membranes moist Neck: supple Respiratory: wheezing Cardiology: no edema, regular rate, regular rhythm, normal S1, normal S2 Gastrointestinal: normoactive bowel sounds, no tenderness, no guarding Integumentary: rash (chronic on her posterior trunck), warm and dry Neurologic: no focal deficit, no asterixis, alert and oriented x3 Musculoskeletal: no deformities, no erythema, no cyanosis Psychiatric: mood/affect appropriate, cooperative Results - Lab Results 10/01/17 05:01 10/01/17 05:01 Most recent lab results Calcium 8.7 mg/dL (8.6-10.3) 10/01/17 05:01 I reviewed both inpatient and outpatient progress notes, home an inpatient medication list, vital signs, labs, and imaging including the CTA (with contrast ) of the chest abdomen and pelvis. Consult Discharge Plan - Plan Referrals: Sapna Tripathi MD [Primary Care Provider] -
[2017-10-01] MEDS: Ondansetron 4 MG/2 ML VIAL IVP PRN ×2 (16:37→20:26)
--- NOTE | 2017-10-01 16:40 | Internal Med Progress Note ---
Date of Encounter: 10/01/17 Time of Encounter: 16:38 - Assessment and plan (1) Acute renal failure Current Visit: Yes Status: Acute Assessment and plan: Likely resulted from hypertensive urgency or abrupt correction of chronic hypertension, also possible contrast induced. - Hold lisinopril, hold Lasix - Continue BP control cautiously - Give gentle IV hydration to avoid fluid overload - Nephrology consulted, recommendations appreciated. Qualifiers: Acute renal failure type: unspecified Qualified Code(s): N17.9 - Acute kidney failure, unspecified (2) Chest pain, rule out acute myocardial infarction Current Visit: Yes Status: Acute Assessment and plan: Has history of CAD and previous NH Described as squeezing in substernal region, lasted 30 min, no alleviating factor, without radiation Troponin negative x3 BP now within normal limits Last [facility] was in 2016. Previous echocardiogram showed reduced LVEF. Today echo showed LVEF 65% with normal LV size and function, moderate diastolic dysfunction. EKG showed ST depressions in V4-V6 Stress test as OP suggested - Continue management of hypertension (3) Hypertensive urgency Current Visit: Yes Status: Acute Assessment and plan: Off nitro drip since BP now within normal limits - Continue Norvasc, Hydralazine TID PO, Lisinopril - She has listed allergie to BB - will add prn hydralazine IV (4) CAD (coronary artery disease) Current Visit: Yes Status: Acute Qualifiers: Coronary Disease-Associated Artery/Lesion type: [place] artery [place] vs. transplanted heart: [place] heart Associated angina: angina presence unspecified Qualified Code(s): I25.10 - Atherosclerotic heart disease of [place] coronary artery without angina pectoris (5) CHF (congestive heart failure) Current Visit: Yes Status: Acute Qualifiers: Heart failure type: diastolic Heart failure chronicity: chronic Qualified Code(s): I50.32 - Chronic diastolic (congestive) heart failure (6) Cardiomyopathy Current Visit: Yes Status: Acute Qualifiers: Cardiomyopathy type: unspecified Qualified Code(s): I42.9 - Cardiomyopathy , unspecified (7) Nonischemic cardiomyopathy Current Visit: Yes Status: Chronic (8) Presence of permanent cardiac pacemaker Current Visit: Yes Status: Chronic (9) DVT prophylaxis Current Visit: Yes Status: Acute - Subjective Interval history: No acute issues. - Constitutional Vitals: Temp Pulse Resp BP Pulse Ox 97.8 F 59 18 120/62 97 03/02/18 16:21 10/01/17 16:21 10/01/17 16:21 10/01/17 16:21 10/01/17 16:21 General appearance: Present: A&O X 3, pleasant, no acute distress, answers questions appropriately - Head Head exam: Present: atraumatic, normocephalic - Eye Eye exam: Present: PERRL, conjuntiva pink, sclera anicteric Pupils: Present: PERRL - Neck Neck exam general surgery: Present: supple, trachea midline. Absent: lymphadenopathy - Respiratory Respiratory exam: Present: CTAB. Absent: accessory muscle use, rales, rhonchi, wheezes - Cardiovascular Cardiovascular exam: Present: RRR, +S1, +S2. Absent: diastolic murmur, gallop, rubs, systolic murmur - GI/Abdominal GI/Abdominal exam: Present: normal bowel sounds, soft, no peritoneal signs. Absent: distended, tenderness - Extremities Exam Extremities exam: Present: warm, radial pulses palpable and symmetrical. Absent : calf tenderness, cyanotic, pedal edema - Neurological Exam Neurological exam: Present: CN II-XII intact, oriented X3, no focal deficits. Absent: pronater drift, facial droop, speech deficit - Skin Skin exam: Present: dry, intact Internal Medicine: Result - Labs CBC & Chem 7: 10/01/17 05:01 10/01/17 05:01 Labs: Short CBC 10/01/17 Range/Units 05:01 WBC 9.0 (4.3-11.1) K/mcL Hgb 12.4 (11.5-15.4) g/dL Hct 37.4 (35.3-44.9) % Plt Count 251 (140-400) K/mcL Neutrophils # 5.9 (1.6-8.9) K/mcL BMP 10/01/17 05:01 Sodium 133 L Potassium 4.6 Chloride 103 Carbon Dioxide 22 L BUN 36 H Creatinine 2.15 H Glucose 148 H Calcium 8.7 Consult Discharge Plan - Plan Referrals: Sapna Tripathi MD [Primary Care Provider] -
[2017-10-01] MEDS ORDERED: Famotidine 20 MG TABLET PO SCH (21:00)
[2017-10-01 21:39] LABS: Potassium,Urine 26.5 mEq/L; Sodium, Urine 34.1 mEq/L
[2017-10-01] MEDS: TRETINOIN 0.025% TP SCH (22:35)
[2017-10-02 05:59] LABS: Basophils % 0.4 %; Eosinophils % 0.3 %; Hematocrit 36.5 % (35.3-44.9); Hemoglobin 11.9 g/dL (11.5-15.4); Immature Granulocytes % 1.1 % (0-4); Lymphocytes # 1.9 K/mcL (0.6-4.6); Lymphocytes % 20.4 %; Mean Corpuscular HGB Conc 32.6 g/dL (31.6-35.5); Mean Corpuscular Hemoglobin 30.4 pg (28.0-33.3); Mean Corpuscular Volume 93.4 fL (83.0-100.0); Mean Platelet Volume 9.5 fL (9.4-12.4); Monocytes % 10.5 %; Neutrophils # 6.3 K/mcL (1.6-8.9); Platelet Count 289 K/mcL (140-400); Red Blood Count 3.91 M/mcL (3.82-4.97); Red Cell Distribution Width 13.6 % (11.5-14.5); Segmented Neutrophils % 67.3 %
[2017-10-02] MEDS: *HR* Heparin 5,000 UNIT/ML VIAL SQ SCH (06:10)
[2017-10-02 06:17] LABS: Calcium 8.5 mg/dL (8.6-10.3); Potassium 4.4 mEq/L (3.5-5.1); Uric Acid 8.1 mg/dL (2.3-7.6)
[2017-10-02] MEDS: amLODIPine 5 MG TABLET PO SCH (08:23)
[2017-10-02] MEDS: Gabapentin 300 MG CAPSULE PO SCH (08:23)
[2017-10-02] MEDS: *HR* OxyCODONE Immed Rel 15 MG TABLET PO SCH (08:23)
[2017-10-02] MEDS: hydrALAZINE 25 MG TABLET PO SCH (08:23)
[2017-10-02] MEDS: Triamcinolone Acet 0.1% CRM 15 GM TUBE TP SCH (08:24)
[2017-10-02] MEDS: ALPRAZolam 1 MG TABLET PO PRN (08:26)
--- NOTE | 2017-10-02 09:07 | Discharge Summary ---
- NOTES TO OUTPATIENT PROVIDER Notes to Outpatient Provider: Recheck BMP/ kidney function. - Hold upon discharge: lisinopril, Lasix, gabapentin, Ibuprofen due to renal function. - Blood pressure has been controlled even with lisinopril held. Possible non- compliance with meds, diet, lifestyle changes at home. - Resume lisinopril and Lasix at the discretion of primary care provider. Orders not resulted at time of discharge: Pending orders 10/01/17 18:41 Urinalysis reflex Microscopic [URIN] Routine Date of Encounter: 10/02/17 Time of Encounter: 09:07 - Discharge Diagnosis (1) Chest pain, rule out acute myocardial infarction Priority: Primary Status: Acute (2) Hypertensive urgency Priority: Secondary Status: Acute (3) Acute renal failure Priority: Secondary Status: Acute Qualifiers: Acute renal failure type: unspecified Qualified Code(s): N17.9 - Acute kidney failure, unspecified (4) CAD (coronary artery disease) Priority: Secondary Status: Acute Qualifiers: Coronary Disease-Associated Artery/Lesion type: [place] artery [place] vs. transplanted heart: [place] heart Associated angina: angina presence unspecified Qualified Code(s): I25.10 - Atherosclerotic heart disease of [place] coronary artery without angina pectoris (5) CHF (congestive heart failure) Priority: Secondary Status: Acute Qualifiers: Heart failure type: diastolic Heart failure chronicity: chronic Qualified Code(s): I50.32 - Chronic diastolic (congestive) heart failure (6) Cardiomyopathy Priority: Secondary Status: Acute Qualifiers: Cardiomyopathy type: unspecified Qualified Code(s): I42.9 - Cardiomyopathy , unspecified (7) Nonischemic cardiomyopathy Priority: Secondary Status: Chronic (8) Presence of permanent cardiac pacemaker Priority: Secondary Status: Chronic (9) DVT prophylaxis Priority: Secondary Status: Acute Hospital course: Ms. Monge is a 62 year old female who presents to ED with c/o chest pain, described as being sharp then became a dull pressure. Pt also presented for concern of elevated blood pressure, states her BP was 276/177 this morning with pulse of 129. She took her BP meds, and an hour later she became dizzy, lightheaded, short of breath, diaphoretic, and had facial flushing. Chest pain was intermittent and lasted for an hour, when it hadn't gone away after an hour she became concerned and decided to get medical attention. In the ED, pt's blood pressure was 231/88 with a pulse of 62. EKG from EMS crew showed ST depressions in V4-V6. Basic labs and troponin were drawn. There was concern for end organ damage given her presenting BP and ST depressions. Her BP was lowered slowly using nitroglycerin drip. CTA of chest and abdomen performed because pt reportedly has h/o aneurysm, results showed no evidence for aortic dissection. Initial metabolic panel and CBC were unremarkable. She was admitted for further workup and treatment. Cycled cardiac enzymes came back negative three times. Blood pressure came down to SBPs in 140s. Echocardiogram was done and showed improved EF from prior study. Cardiology was consulted and reviewed [facility] from 2016. They indicated there was no indication for further cardiac testing. BP remained stable after resuming her home medications and a cardiac diet. Patient did develop acute kidney injury likely contrast induced and from blood pressure drop with treatment. Nephrology was consulted. Gentle iv fluid hydration given, vineet inhibitor and lasix, ibuprofen held. Gabapentin was renally dosed. Her renal function improved, BP remained controlled, chest pain free. She was discharged home in stable condition. - Baseline creatinine is 0.80. Her creatinine peaked at 2.17 and on discharge was 1.35. - Lasix 20 mg daily will be held and lisinopril 40 mg PO held. Can be resumed at discretion of primary care provider. Her blood pressure was stable even after lisinopril was held. - Discussed improtance of medication compliance, lifestyle modifications - Advised against using ibuprofen and other NSAIDs unless okay with primary care physician. - Time Spent with Patient Total time spent providing and/or coordinating discharge services: - Discharge Medications Home Medications: ALPRAZolam [Xanax 1 MG Tablet] 1 mg PO QID PRN 05/14/16 [History] Ranitidine HCl [Zantac] 300 mg PO DAILY 05/14/16 [History] amLODIPine [Norvasc] 10 mg PO 1400 05/14/16 [History] Oxycodone HCl 15 mg PO TID 05/21/16 [History] Atorvastatin Calcium [Lipitor] 80 mg PO HS 09/28/17 [History] Escitalopram [Lexapro] 10 mg PO DAILY 09/28/17 [History] Hydralazine HCl 100 mg PO TID 09/28/17 [History] Ondansetron HCl [Zofran] 4 mg PO TID PRN 09/28/17 [History] Patient Taking Own Medication 0 each TP HS each 10/02/17 [Rx] Allergies/Adverse Reactions: 3 Allergy/AdvReac Type Severity Reaction Status Date / Time hydrochlorothiazide AdvReac Rash Verified 09/28/17 14:45 metoprolol [From Toprol XL] AdvReac Rash Verified 09/28/17 14:45 Date of admission: 09/28/17 20:53 Primary care physician: Sapna Tripathi Consults: 09/29/17 15:41 Consult to Cardiology [CONS] Routine Comment: Consulting Provider: Cardiology Dyan Reason for Consult: chest pain Call Completed: No 10/01/17 09:06 Consult to Nephrology [CONS] Routine Consulting Provider: [facility] [place]/JOSE DANIEL/NILDA Reason for Consult: ERIK Call Completed: Yes Discharging clinician: Veto Curry - Constitutional Vitals: Temp Pulse Resp BP Pulse Ox 98 F 60 17 125/55 95 10/02/17 06:59 10/02/17 06:59 10/02/17 06:59 10/02/17 06:59 10/02/17 06:59 General appearance: Present: A&O X 3, pleasant, no acute distress, answers questions appropriately - Head Head exam: Present: atraumatic, normocephalic - Eye Eye exam: Present: PERRL, conjuntiva pink, sclera anicteric Pupils: Present: PERRL - Neck Neck exam general surgery: Present: supple, trachea midline. Absent: lymphadenopathy - Respiratory Respiratory exam: Present: CTAB. Absent: accessory muscle use, rales, rhonchi, wheezes - Cardiovascular Cardiovascular exam: Present: RRR, +S1, +S2. Absent: diastolic murmur, gallop, rubs, systolic murmur - GI/Abdominal GI/Abdominal exam: Present: normal bowel sounds, soft, no peritoneal signs. Absent: distended, tenderness - Extremities Exam Extremities exam: Present: warm, radial pulses palpable and symmetrical. Absent : calf tenderness, cyanotic, pedal edema - Neurological Exam Neurological exam: Present: CN II-XII intact, oriented X3, no focal deficits. Absent: pronater drift, facial droop, speech deficit - Skin Skin exam: Present: dry, intact - Patient Status Disposition: Home, Self-Care Condition: Fair Functional capacity at discharge: independent ambulation Overall status at discharge: patient is back to baseline (d) - Discharge Instructions Follow Up With: Sapna Tripathi MD [Primary Care Provider] - - Diet and Activity Activity: increase activity as tolerated Diet: low fat, low cholesterol, low salt diet
[2017-10-02 10:43] VITALS: BP 120/76
--- NOTE | 2017-10-02 11:54 | Nephrology Progress Note ---
Date of Encounter: 10/02/17 Time of Encounter: 10:40 - Assessment and Plan (1) Acute renal failure Status: Acute SCr is rapidly correcting, so she is not in ATN and I suspect her renal function to cotinue to improve Agree with discharge today. Cont to follow a renal protective strategy by avoiding nephrotoxins, dosing Rx by GFR. Counseled the pt for >50% of the encounter on nutritional mgt in CKD, avoidance of NSAIDs, and that I recommend outpt Nephro follow up. Thank you. Qualifiers: Acute renal failure type: unspecified Qualified Code(s): N17.9 - Acute kidney failure, unspecified (2) Hyponatremia Status: Acute (3) Hypertensive urgency Status: Acute (4) Ascending aortic aneurysm Status: Chronic Subjective Principal diagnosis: ERIK Interval history: Pt was s/e earlier in the day, and she did not affirm N/V/D or uremic symptoms. She said that she is going to be d/c'd today. Objective - Vital Signs Vital signs: Vital Signs Temp Pulse Resp BP Pulse Ox 10/02/17 10:42 97.8 F 66 14 120/76 96 10/02/17 06:59 98 F 60 17 125/55 95 10/02/17 05:00 98 F 60 18 115/49 95 10/01/17 20:00 98 F 63 18 153/60 96 10/01/17 16:21 97.8 F 59 18 120/62 97 Intake and Output 10/01/17 10/02/17 10/02/17 23:59 07:59 15:59 Intake Total 1240 / 1240 240 / 240 120 / 120 Output Total 200 / 200 1100 / 1100 Balance 1040 / 1040 -860 / -860 120 / 120 Intake: IV Fluids 1000 / 1000 0.9 % Sodium Chloride 1,000 ML 1000 / 1000 @ 125 mls/hr IVC .Q8H AL Rx#: [id number] Oral 240 / 240 240 / 240 120 / 120 Output: Urine 200 / 200 1100 / 1100 Other: Meal Breakfast Percent of Meal Consumed 95% # Voids 1 # Bowel Movements 1 Blood Glucose* 157 - General Appearance Exam: General appearance: well-developed, well-nourished, appears started age EENT: ATNC, PERRL, mucous membranes moist Neck: supple Respiratory: wheezing Cardiology: no edema, regular rate, regular rhythm, normal S1, normal S2 Gastrointestinal: normoactive bowel sounds, no tenderness, no guarding Integumentary: rash (chronic on her posterior trunck), warm and dry Neurologic: no focal deficit, no asterixis, alert and oriented x3 Musculoskeletal: no deformities, no erythema, no cyanosis Psychiatric: mood/affect appropriate, cooperative - Lab 10/02/17 05:31 10/02/17 05:31 Most recent lab results Calcium 8.5 mg/dL (8.6-10.3) L 10/02/17 05:31 Urine Sodium 34.1 mEq/L 10/01/17 20:35 - VTE Documentation of Mechanical Device: Venous foot pump, device Consult Discharge Plan - Plan Referrals: Sapna Tripathi MD [Primary Care Provider] -
== END 2017-10-02 13:00 | disposition home or self-care (01) ==
LOC: 2NENU 15:56 → EMEROO 15:56 → 2NENU 21:12
PROVIDERS: ADMIT Internal Medicine; ATTEND Student in an Organized Health Care Education/Training Program